=== PATIENT | female | born 1960 | race Caucasian/White ===

== ENCOUNTER 2017-05-25 08:15 | Day surgery (SDC) | payer OTHER ==
[~2017-05-25] VITALS: Ht 175.3 cm; Wt 83.0 kg
[~2017-05-25 08:15] MED LIST: CEFAZOLIN 1 GM IVPB PREMIX 50 ML IV ONE
[2017-05-25] MEDS ORDERED: SEVOFLURANE 15 MIN GAS INH ONE (16:05)
[2017-05-25] MEDS ORDERED: ROCURONIUM BROMIDE 10 MG/ML (ZEMURON) IV ONE (16:05)
[2017-05-25] MEDS ORDERED: BUPIVACAINE /PF 0.25% 30 ML VIAL INJ ONE (16:05)
[2017-05-25] MEDS ORDERED: LR 1,000 ML IV.SOLN IV ONE (16:05)
[2017-05-25] MEDS ORDERED: ISOSULFAN BLUE 5 ML VIAL (LYMPHAZURIN) INJ ONE (16:05)
[2017-05-25] MEDS ORDERED: CEFAZOLIN 2 GM IVPB PREMIX 50 ML IV ONE (16:05)
[2017-05-25] MEDS ORDERED: MIDAZOLAM HCL 5 MG/5 ML VIAL IVP ONE (16:05)
[2017-05-25] MEDS ORDERED: ONDANSETRON HCL 4 MG/2 ML VIAL IVP ONE (16:05)
[2017-05-25] MEDS ORDERED: METOCLOPRAMIDE HCL 10 MG/2 ML VIAL IVP ONE (16:05)
[2017-05-25] MEDS ORDERED: KETOROLAC TROMETHAMINE 30 MG VIAL IVP ONE (16:05)
[2017-05-25] MEDS ORDERED: NS IRRIG SOLN 1000 ML IR ONE (16:05)
[2017-05-25] MEDS ORDERED: PROPOFOL 200MG/ 20ML VIAL (DIPRIVAN) IV ONE (16:05)
[2017-05-25] MEDS ORDERED: DEXAMETHASONE SOD PHOSPHATE 4 MG/ML VIAL IVP ONE (16:05)
[2017-05-25] MEDS ORDERED: fentaNYL CITRATE 250 MCG/5 ML AMP IV ONE (16:05)
[2017-05-25] MEDS ORDERED: LR 1,000 ML IV SCH (17:10)
[2017-05-25] MEDS ORDERED: MEPERIDINE HCL/PF 25 MG/ML DISP.SYRIN IVP PRN (17:15)
[2017-05-25] MEDS ORDERED: HYDROmorphone 2 MG/ML VIAL IVP PRN ×2 (17:15)
[2017-05-25] MEDS ORDERED: HYDROmorphone 1 MG INJ. 1 MG/ML AMPUL IVP PRN ×2 (17:15→18:00)
[2017-05-25] MEDS ORDERED: D5/0.45 NS 1,000 ML IV SCH (17:52)
[2017-05-25] MEDS ORDERED: DILTIAZEM HCL 25 MG/5 ML VIAL IVP ONE (18:00)
[2017-05-25] MEDS ORDERED: HYDROcodone/ACETAMIN 5-325 MG TAB (NORCO/ VICODIN) PO PRN ×2 (18:00)
[2017-05-25 18:45] VITALS: BP_SYST 150
== END 2017-05-25 19:45 | disposition home or self-care (01) ==
LOC: SMU 08:15 → SDS 08:15
PROVIDERS: ATTEND Colon & Rectal Surgery
DX: C50.911 Malignant neoplasm of unspecified site of right female breast (principal); I10 Essential (primary) hypertension; E78.2 Mixed hyperlipidemia; F33.9 Major depressive disorder, recurrent, unspecified; Z98.890 Other specified postprocedural states; Z90.710 Acquired absence of both cervix and uterus; E66.9 Obesity, unspecified; F41.9 Anxiety disorder, unspecified
CPT/HCPCS: 19281; 19301; 38525; 76098; 78195; 88307; 88333; 88342; A9541; J0690 ×2; J1100; J1885; J2250; J2405; J2704; J2765; J3010; J3490; J7120; Q9968